=== PATIENT | female | born 1950 | race Caucasian/White ===

== ENCOUNTER → 2016-10-16 | Outpatient (CLI) | payer MEDICARE, MEDICAID ==
--- NOTE | 2016-10-17 15:09 | RADIOLOGY REPORT ---
NAME: DELMIS OWENS [facility] REC#: [id number] PT STATUS: REG CLI : 1950 PHYSICIAN: FRANKY KELLER APRN ADMIT DATE: 10/16/16/RAD SIGNED Date of Exam:10/16/16 CT CHEST WO EXAMINATION: CT chest without contrast with axial and coronal reconstructions performed. Low dose nonenhanced CT protocol is utilized. INDICATION: Followup, 03/14/2016. FINDINGS: There are stable irregular pleural parenchymal somewhat nodular densities seen in the lung apices more prominent on the right side favored to be related to scarring. Nonspecific left suprahilar 5 mm nodule is noted in the left upper lobe and is similarly likely related to scarring. There is also upper lobe predominant mild emphysema changes seen. There is no new nodule or mass identified. No significant consolidation is seen. The mediastinum demonstrates no mass or lymphadenopathy. The thoracic aorta is mildly ectatic. The heart size is normal. There is no pericardial or pleural effusion. There is mild right convexity scoliosis of the thoracic spine. There is suggestion of a small hiatal hernia. IMPRESSION: Stable nonspecific irregular pleural parenchymal densities in the lung apices more prominent on the right side and stable left suprahilar 5 mm nodule likely related to scarring. Continued followup with another low dose unenhanced CT chest in 6-9 months is recommended. Lung-RADS Assessment Category 3: Probably benign. RECOMMENDATION: 6-9 months followup study. Dictated on workstation # [id number] Dict: 10/16/16 1233 Trans: 10/16/16 1254 TS [id number] Interpreted by: LATONYA RILEY MD Electronically signed by: LATONYA RILEY MD [facility] [place] DIVISIONChris
== END ==
LOC: RAD 11:22
PROVIDERS: ATTEND Nurse Practitioner Family
DX: R91.1 Solitary pulmonary nodule (principal); F17.201 Nicotine dependence, unspecified, in remission
CPT/HCPCS: 71250

== ENCOUNTER → 2017-04-17 | Outpatient (CLI) | payer MEDICARE, MEDICAID ==
--- NOTE | 2017-04-17 15:16 | Diagnostic Imaging Report ---
PROCEDURE: CT chest without contrast. TECHNIQUE: Multiple contiguous axial images were obtained through the chest without the use of intravenous contrast. INDICATION: Followup pulmonary micronodule. COMPARISON: 10/16/2016. FINDINGS: Punctate micronodule is again identified within the suprahilar region of the left upper lobe. It measures approximately 4 to 5 mm in diameter. This is stable compared to prior exam (image 19, series 2 compared to image 16, series 2). No new pulmonary nodules or masses are identified. Irregular pleural-based parenchymal densities within the bilateral apices are again evaluated and are stable as well. Benign calcified granuloma is noted within the right lower lobe. There is no focal consolidation, pleural effusion, nor pneumothorax. Note is made of mild scattered areas of air trapping consistent with background of COPD. Cardiomediastinal structures show normal heart size. There is no large pericardial effusion. There is calcified aortic and coronary atherosclerosis. No pathologically enlarged or morphologically abnormal adenopathy is seen within the mediastinum, steven, nor axilla. Osseous structures show age-related degenerative changes of the thoracic spine. No acute-appearing bony abnormalities are seen. Included portions of the upper abdomen are unremarkable as well. IMPRESSION: 1. Stable left upper lobe pulmonary micronodule. Six-month followup is recommended to ensure ongoing stability. 2. Stable pleural-based opacities within both apices, likely on the basis of biapical scarring/fibrosis. Continued followup however is recommended. 3. Background of COPD. 4. No acute cardiopulmonary process. 5. Calcified aortic and coronary atherosclerosis. Dictated by: Dictated on workstation # [id number]
== END ==
LOC: RAD 13:35
PROVIDERS: ATTEND Internal Medicine Critical Care Medicine
DX: J44.9 Chronic obstructive pulmonary disease, unspecified (principal); R91.1 Solitary pulmonary nodule; I25.10 Atherosclerotic heart disease of native coronary artery without angina pectoris; I70.0 Atherosclerosis of aorta; F17.201 Nicotine dependence, unspecified, in remission
CPT/HCPCS: 71250

== ENCOUNTER → 2017-10-16 | Outpatient (CLI) | payer MEDICARE, MEDICAID ==
--- NOTE | 2017-10-16 11:33 | Diagnostic Imaging Report ---
PROCEDURE: CT chest without contrast. TECHNIQUE: Multiple contiguous axial images were obtained through the chest without the use of intravenous contrast. INDICATION: Followup lung nodule. COMPARISON: Comparison made with prior examination 04/17/2017. FINDINGS: There is biapical pleural thickening or scarring. Note is again made of a 5 mm noncalcified nodular density adjacent to the left hilum. There is a calcified granuloma in the right lung base. There are no other discrete pulmonary nodules, masses or infiltrates. There is no pleural or pericardial effusion. There is no pneumothorax. There are coronary artery calcifications. There is no pathologically enlarged adenopathy in the chest. The visualized intraabdominal structures are unremarkable. There are mild degenerative changes in the spine. IMPRESSION: 1. Stable 5 mm nodule adjacent to left hilum. Additional six-month followup is recommended to ensure continued stability. 2. Unchanged biapical pleural thickening or scarring with some background of COPD. 3. No other acute abnormality in the chest. Dictated by: Dictated on workstation # [id number]
== END ==
LOC: RAD 10:40
PROVIDERS: ATTEND Nurse Practitioner Family
DX: R91.1 Solitary pulmonary nodule (principal)
CPT/HCPCS: 71250

== ENCOUNTER → 2018-04-18 | Outpatient (CLI) | payer MEDICARE, MEDICAID ==
--- NOTE | 2018-04-18 09:34 | Diagnostic Imaging Report ---
PROCEDURE: CT chest without contrast. TECHNIQUE: Multiple contiguous axial images were obtained through the chest without the use of intravenous contrast. INDICATION: COPD and pulmonary nodules. The study is performed for followup. COMPARISON: Comparison is made with prior CT chest from 10/16/2017. FINDINGS: No axillary lymphadenopathy is identified. No definite hilar or mediastinal abnormality is seen. There are coronary arterial calcifications present. No pericardial or pleural fluid is detected. Biapical pleural-parenchymal scarring is again noted. There appear to be centrilobular emphysematous changes in both lungs. Small nodule in the left upper lobe image 19 remains stable at approximately 4-5 mm. Calcified granuloma right lower lobe is unchanged. No new nodules are seen. Upper abdomen is unremarkable. IMPRESSION: Stable emphysematous changes and left upper lobe pulmonary nodule when compared with exam from 10/16/2017. Dictated by: Dictated on workstation # [id number]
== END ==
LOC: RAD 08:49
PROVIDERS: ATTEND Nurse Practitioner Family
DX: J43.9 Emphysema, unspecified (principal); R91.8 Other nonspecific abnormal finding of lung field; F12.10 Cannabis abuse, uncomplicated
CPT/HCPCS: 71250

== ENCOUNTER → 2019-04-30 | Outpatient (CLI) | payer MEDICARE, MEDICAID ==
--- NOTE | 2019-04-30 17:13 | Diagnostic Imaging Report ---
INDICATION: [id number]-[id number] history of smoking. COMPARISON: 04/18/2018. TECHNIQUE: Routine noncontrast low though CT of the chest was performed per department protocol. FINDINGS: Evaluation of the lung cornell demonstrate pleural parenchymal densities within the bilateral apices. Given the differences in slice thickness when compared to prior exams, overall burden and distribution appears stable when compared to 04/18/2018. Evaluation of remaining of lung cornell demonstrates aojy-yz-lfrnkqwc emphysematous disease. There is no focal consolidation, large effusion, nor pneumothorax. 4 mm left upper lobe suprahilar micronodule is again identified and is stable (image 67, series 2). No new suspicious pulmonary nodule or mass is identified. Cardiomediastinal structures show normal heart size. There is enlargement of the main pulmonary arterial trunk, as it measures 3.2 cm in diameter. There is also significant calcified aortic and coronary atherosclerosis. Coronary stents maybe in place, but evaluation is obscured by motion artifact. No pathologically enlarged or morphologically abnormal adenopathy is seen within the mediastinum, steven, nor axilla on this noncontrast exam. Osseous structures show no acute abnormalities. Included portions of the upper abdomen are within normal limits. IMPRESSION: 1. No new suspicious pulmonary nodule or mass. Continued followup with any low-dose CT chest is recommended. 2. Pleural based densities within the bilateral lung apices. Again, given differences in slice thickness, overall appearance appears stable 3. Stable left upper lobe micronodule. 4. No acute cardiopulmonary process. 5. Background COPD changes. 6. Significant calcified aortic and coronary atherosclerosis. LUNG-RADS category 2-S. Dictated by: Dictated on workstation # [id number]
== END ==
LOC: RAD 13:59
PROVIDERS: ATTEND Nurse Practitioner Family
DX: Z12.2 Encounter for screening for malignant neoplasm of respiratory organs (principal); J44.9 Chronic obstructive pulmonary disease, unspecified; J98.4 Other disorders of lung; I25.10 Atherosclerotic heart disease of native coronary artery without angina pectoris; I70.0 Atherosclerosis of aorta; R91.1 Solitary pulmonary nodule; Z87.891 Personal history of nicotine dependence

== ENCOUNTER → 2020-05-02 | Outpatient (CLI) | payer MEDICARE, MEDICAID ==
--- NOTE | 2020-05-02 14:17 | Diagnostic Imaging Report ---
CT Lung Screening INDICATION:Screening for lung cancer, 40 pack year history of smoking, quit smoking 4 years prior TECHNIQUE: Noncontrast, low-dose CT imaging performed according to the lung cancer screening protocol. Auto Exposure Controls were utilize during the CT exam to meet ALARA standards for radiation dose reduction. COMPARISON:04/30/2019, 04/18/2018, and 10/16/2017 and 03/14/2016 FINDINGS:No significant adenopathy within the chest. Scattered vascular calcifications, including within the coronary arteries without aneurysmal dilatation of the thoracic aorta. The heart is within normal limits in size. No significant pericardial effusion. No pleural effusion. Tiny hiatal hernia. No pneumothorax. Biapical pleural parenchymal scarring is again noted. 5 mm left upper lobe pulmonary nodule, axial image 66 is identified and stable. New tree-in-bud micronodular nodularity within the right upper lobe is present with the largest nodule measuring 0.4 cm, axial image 96. Calcified granuloma within the right lower lobe. No additional new focal pulmonary nodules or opacities. Minimally visualized upper abdomen is unremarkable. Scattered osseous degenerative changes without acute osseous abnormality. IMPRESSION:New tree-in-bud nodularity with the largest nodule measuring 4 mm within the right upper lobe. This is probably benign, most likely related to a small airway or small vessel infectious or inflammatory process. However, a low-dose CT of the chest is recommended in 6 months to reevaluate. Stable 5 mm left upper lobe pulmonary nodule. This is unchanged since 2016, and benign. Mild to moderate background emphysematous changes. LUNG-RADS CATEGORY:3: Probably benign MODIFIER:S: Mild to moderate background emphysematous changes. Follow-up:Low-dose CT of the chest is recommended in 6 months to reevaluate the tree-in-bud nodularity within the right upper lobe. Dictated by: Dictated on workstation # [id number]
== END ==
LOC: RAD 12:28
PROVIDERS: ATTEND Nurse Practitioner Family
DX: Z12.2 Encounter for screening for malignant neoplasm of respiratory organs (principal); J43.9 Emphysema, unspecified; R91.8 Other nonspecific abnormal finding of lung field; Z87.891 Personal history of nicotine dependence

== ENCOUNTER → 2021-05-02 | Outpatient (CLI) | payer MEDICARE, MEDICAID ==
[~2021-05-02] MED LIST: CATHETER FLUSH 10 ML SYR IV PRN; HOLD METFORMIN - RECEIVED CONTRAST 20 ML VIAL IV SCH; IOHEXOL 350 MG/ML 100 ML (OMNIPAQUE 350) VIAL IV ONE; NS 100 ML (IVPB) BAG IV ONE
[2021-05-02 14:39] LABS: BUN/CREATININE RATIO 19; CREATININE SERUM 0.73 MG/DL (0.60-1.30); GFR ESTIMATED > 60
--- NOTE | 2021-05-02 18:09 | Diagnostic Imaging Report ---
PROCEDURE: CT chest without contrast. TECHNIQUE: Multiple contiguous axial images were obtained through the chest without the use of intravenous contrast. Auto Exposure Controls were utilized during the CT exam to meet ALARA standards for radiation dose reduction. INDICATION: COPD, follow-up. COMPARISON: Exam compared with study from 05/02/2020. FINDINGS: Air trapping and features of centrilobular emphysema as a chronic finding noted. The vague tree-in-bud nodularity in the right lung present previously has resolved. Some peripheral air cyst in the apices and biapical pleural-parenchymal scarring, greater right, chronic. No suspicious lung mass. No adenopathy. The atherosclerotic aorta is nonaneurysmal. There are coronary artery atherosclerotic vascular calcifications. There is no effusion or pneumothorax. No acute or suspect chest wall pathology. The visualized upper abdomen is nonacute. IMPRESSION: Chronic COPD. No acute or suspicious findings in the lungs. Dictated by: Dictated on workstation # [id number]
== END ==
LOC: RAD 14:07
PROVIDERS: ATTEND Nurse Practitioner Family
DX: J44.9 Chronic obstructive pulmonary disease, unspecified (principal); R91.8 Other nonspecific abnormal finding of lung field
CPT/HCPCS: 36415; 71250; 82565; 84520

== ENCOUNTER 2023-06-13 23:04 | Emergency (ER) | payer MEDICARE, MEDICAID ==
[~2023-06-13] VITALS: Ht 167.7 cm; Wt 59.0 kg
--- NOTE | 2023-06-13 23:16 | ED Dyspnea ---
General Stated Complaint: SOA Source of Information: Patient, EMS Exam Limitations: No Limitations History of Present Illness Date Seen by Provider: Jun 13, 2023 Time Seen by Provider: 23:04 Initial Comments 73-year-old female with history of essential tremor, COPD presents to the emergency department for shortness of breath. She states she has felt generally unwell off and on since December. She tells me her biggest concern is she feels like a prisoner in her house because she cannot breathe the air outside. She states when she steps outside and she immediately gets short of breath. She feels fine when she is in her house. She denies any fevers or chills, chest pain. She states she had a similar episode this evening when she walked outside she immediately panicked and got short of breath. On EMS arrival she was hypertensive, hyperventilating and they thought she was panicking. They gave 1 mg of Ativan in route which she states helped her. She does not wear home oxygen. All other systems reviewed and negative except documented per HPI. Voice recognition software was used to help create this chart Allergies and Home Medications Allergies Coded Allergies: No Allergy Information Available (Unverified , 05/02/21) Patient Home Medication List Home Medication List Reviewed: Yes Review of Systems Review of Systems Constitutional: see HPI Past Jzakcth-Hnytot-Nubsfq Hx Patient Social History Tobacco Use?: No Use of E-Cig and/or Vaping dev: No Substance use?: No Alcohol Use?: No Physical Exam Vital Signs Vital Signs - First Documented 06/13/23 23:06 Temp 37.3 Pulse 107 Resp 22 B/P (MAP) 125/97 (106) Pulse Ox 93 O2 Delivery Room Air Capillary Refill : Height, Weight, BMI Height: '" Weight: lbs. oz. kg; BMI Method: General Appearance: No Apparent Distress, WD/WN HEENT: Normal ENT Inspection, Pharynx Normal Neck: Normal Inspection, Non Tender, Supple Respiratory: Chest Non Tender, Lungs Clear, Normal Breath Sounds, No Accessory Muscle Use, No Respiratory Distress Cardiovascular: Regular Rate, Rhythm, No Murmur, Normal Peripheral Pulses Gastrointestinal: Normal Bowel Sounds, No Organomegaly, No Pulsatile Mass, Non Tender, Soft Extremity: Normal Capillary Refill, Normal Inspection, Non Tender, No Calf Tenderness, No Pedal Edema, Other (Severe tremor) Neurologic/Psychiatric: Alert, Oriented x3, No Motor/Sensory Deficits Skin: Normal Color, Warm/Dry Progress/Results/Core Measures Results/Orders Lab Results Laboratory Tests Test 06/13/23 23:11 Range/Units White Blood Count 5.4 4.3-11.0 10^3/uL Red Blood Count 4.64 3.80-5.11 10^6/uL Hemoglobin 14.5 11.5-16.0 g/dL Hematocrit 43 35-52 % Mean Corpuscular Volume 93 80-99 fL Mean Corpuscular Hemoglobin 31 25-34 pg Mean Corpuscular Hemoglobin Concent 34 32-36 g/dL Red Cell Distribution Width 12.5 10.0-14.5 % Platelet Count 301 130-400 10^3/uL Mean Platelet Volume 9.0 9.0-12.2 fL Immature Granulocyte % (Auto) 0 % Neutrophils (%) (Auto) 59 42-75 % Lymphocytes (%) (Auto) 25 12-44 % Monocytes (%) (Auto) 12 0-12 % Eosinophils (%) (Auto) 3 0-10 % Basophils (%) (Auto) 1 0-10 % Neutrophils # (Auto) 3.2 1.8-7.8 10^3/uL Lymphocytes # (Auto) 1.4 1.0-4.0 10^3/uL Monocytes # (Auto) 0.7 0.0-1.0 10^3/uL Eosinophils # (Auto) 0.2 0.0-0.3 10^3/uL Basophils # (Auto) 0.0 0.0-0.1 10^3/uL Immature Granulocyte # (Auto) 0.0 0.0-0.1 10^3/uL Sodium Level 140 135-145 MMOL/L Potassium Level 4.1 3.6-5.0 MMOL/L Chloride Level 104 98-107 MMOL/L Carbon Dioxide Level 23 21-32 MMOL/L Anion Gap 13 5-14 MMOL/L Blood Urea Nitrogen 12 7-18 MG/DL Creatinine 0.77 0.60-1.30 MG/DL Estimat Glomerular Filtration Rate 80 BUN/Creatinine Ratio 16 Glucose Level 111 H 70-105 MG/DL Calcium Level 9.8 8.5-10.1 MG/DL My Orders Orders - MICHAEL DIAZ DO Basic Metabolic Panel (06/13/23 23:13) Chest 1 View, Ap/Pa Only (06/13/23 23:13) Cbc With Automated Diff (06/13/23 23:13) Vital Signs/I&O 06/13/23 23:06 Temp 37.3 Pulse 107 Resp 22 B/P (MAP) 125/97 (106) Pulse Ox 93 O2 Delivery Room Air Departure Communication (Admissions) I have independently reviewed her chest x-ray. This shows changes consistent with chronic COPD but no acute findings. Her vital signs are completely stable here with oxygen saturations 93 to 96% on room air. Her tachycardia has improved prior to arrival and she has had normal blood pressures to slightly high blood pressures. She is feeling better after she got Ativan and the ambulance. I wonder if there he has a significant anxiety component, perhaps agoraphobia even as she only has shortness of breath and panics when she goes outside. She states she feels perfectly normally in her home. This has been going on since about December. I did discuss this with her and she will talk to her doctor about this. There is no evidence for an emergent medical condition at this time. I reviewed her lab work is unremarkable. She is discharged in stable condition Impression Primary Impression: Dyspnea Qualified Codes: R06.00 - Dyspnea, unspecified Disposition: HOME, SELF-CARE Condition: Stable Departure-Patient Inst. Referrals: ANA MARÍA JOHNSON MD (PCP/Family) Primary Care Physician Patient Instructions: Shortness of Breath, Adult ED Add. Discharge Instructions: You are seen in the emergency department today for shortness of breath. No emergent medical conditions identified for your symptoms today. Your chest x- ray is normal. Your vital signs are normal outside of slightly elevated blood pressures. Follow-up with your primary doctor for any nonemergent needs. Return to the emergency department for any severe concerns MICHAEL DIAZ DO Jun 13, 2023 23:16
[2023-06-13 23:18] LABS: BASOPHILS % (AUTO) 1 % (0-10); EOSINOPHILS # (AUTO) 0.2 10^3/uL (0.0-0.3); EOSINOPHILS % (AUTO) 3 % (0-10); HEMATOCRIT 43 % (35-52); HEMOGLOBIN 14.5 g/dL (11.5-16.0); LYMPHOCYTES # (AUTO) 1.4 10^3/uL (1.0-4.0); LYMPHOCYTES % (AUTO) 25 % (12-44); MEAN CORPUSCULAR HEMOGLOBIN 31 pg (25-34); MEAN CORPUSCULAR HGB CONC 34 g/dL (32-36); MEAN CORPUSCULAR VOLUME 93 fL (80-99); MONOCYTES # (AUTO) 0.7 10^3/uL (0.0-1.0); MONOCYTES % (AUTO) 12 % (0-12); NEUTROPHILS # (AUTO) 3.2 10^3/uL (1.8-7.8); NEUTROPHILS % (AUTO) 59 % (42-75); PLATELET COUNT 301 10^3/uL (130-400); WHITE BLOOD COUNT 5.4 10^3/uL (4.3-11.0)
[2023-06-13 23:32] LABS: CALCIUM 9.8 MG/DL (8.5-10.1); CREATININE SERUM 0.77 MG/DL (0.60-1.30); POTASSIUM 4.1 MMOL/L (3.6-5.0)
[2023-06-14 00:53] VITALS: BP 117/81
--- NOTE | 2023-06-14 06:27 | Diagnostic Imaging Report ---
INDICATION: Respiratory distress. Portable chest 11:29 PM Heart size and pulmonary vascularity are normal. Lungs are clear. There are no effusions or pneumothoraces. IMPRESSION: No acute abnormalities in the chest. Dictated by: Dictated on workstation # [id number]
== END 2023-06-14 00:52 | disposition home or self-care (01) ==
LOC: EDUNIT# 23:04 → ER 23:06
DX: R06.00 Dyspnea, unspecified (principal)
CPT/HCPCS: 36415; 71045; 80048; 85025